=== PATIENT | female | born 1980 | race Two or more races ===

== ENCOUNTER 2022-12-26 06:07 | Inpatient (IN) | payer MEDICAID ==
[2022-12-24 08:36] LABS: Urine WBC None Seen /hpf (0 - 5)
[2022-12-24 08:40] LABS: Basophils # (auto) 0 10 ^3/uL (0-0.2); Basophils % (auto) 0.6 % (0.0-2.0); Eosinophils # (auto) 0.1 10 ^3/uL (0-0.8); Eosinophils % (auto) 1.8 % (0.0-7.0); Hematocrit 38.2 % (36.0-46.0); Lymphocytes # (auto) 1.9 10 ^3/uL (0.4-5.4); Lymphocytes % (auto) 28.2 % (10.0-50.0); Mean Corpuscular Hemoglobin 30.8 pg (28.0-32.0); Mean Corpuscular Volume 90.5 fL (80.0-100.0); Monocytes # (auto) 0.4 10 ^3/uL (0-1.3); Monocytes % (auto) 6.8 % (0.0-12.0); Neutrophils # (auto) 4.2 10 ^3/uL (1.6-8.6); Neutrophils % (auto) 62.6 % (37.0-80.0); Nucleated Red Blood Cells % 0.1 %; Red Blood Cells 4.22 10^6/uL (4.0-5.20); Red Cell Distribution Width 14.1 % (11.8-14.3); White Blood Cell 6.6 10^3/uL (4.4-10.8)
[2022-12-24 08:56] LABS: Urine Bacteria NONE SEEN /hpf (None Seen); Urine Blood Negative /uL (Negative); Urine Specific Gravity 1.007 (1.001-1.035)
[2022-12-24 08:57] LABS: INR 0.94 (0.9-1.15); Partial Thromboplastin Time 25.8 sec (24.6-33.4)
[2022-12-24 09:14] LABS: Albumin 3.6 g/dL (3.4-5.0); Calcium 8.6 mg/dL (8.5-10.1)
[2022-12-24 09:18] LABS: Bilirubin, Total 0.3 mg/dL (0.2-1.0); Total Protein 7.3 g/dL (6.4-8.2)
[~2022-12-26] VITALS: Ht 167.6 cm; Wt 75.9 kg
[~2022-12-26 06:07] MED LIST: ALBUAER3 IN; IBUP400T22 PO; TRIA1SPR6
[2022-12-26] MEDS ORDERED: ceFAZolin 1GM/50ML 100 ML IV ONE (07:16)
[2022-12-26] MEDS ORDERED: HYDROmorphone HCL 2 MG/ML VL/or syr IV PRN ×2 (07:30)
[2022-12-26] MEDS ORDERED: MORPHINE SULFATE INJ 2 MG/ml SYRG IV PRN (07:30)
[2022-12-26] MEDS ORDERED: LIDOCAINE 1% HCL (LOCAL ANESTH.) INJ 20ML MDV ONE (07:30)
[2022-12-26] MEDS ORDERED: METOCLOPRAMIDE HCL 5MG/ml INJ 2ml VIAL IV PRN (07:30)
[2022-12-26] MEDS ORDERED: BUPIVACAINE HCL 50 ML ONE (07:30)
[2022-12-26] MEDS ORDERED: fentaNYL CITRATE 100 MCG/2 ML VL ONE (07:34)
[2022-12-26] MEDS ORDERED: PROPOFOL 10 MG/ML 20 ML IV ONE ×2 (07:34→08:09)
[2022-12-26] MEDS ORDERED: ONDANSETRON HCL 4 MG/2 ML VIAL ONE (07:34)
[2022-12-26] MEDS ORDERED: MIDAZOLAM HCL 2MG/2ML 2ml VIAL (1mg/ml) ONE (07:34)
[2022-12-26] MEDS ORDERED: SODIUM CHLORIDE LOCK 10 ML ONE (07:34)
[2022-12-26] MEDS ORDERED: AUG875T PO (09:10)
[2022-12-26] MEDS ORDERED: HYDR-4902 PO (09:10)
[2022-12-26] MEDS ORDERED: NITROGLYCERIN 0.4 MG SL TAB SL PRN (10:00)
[2022-12-26] MEDS ORDERED: HYDROmorphone HCL 2 MG/ML VL/or syr IV ONE (10:10)
[2022-12-26 12:00] VITALS: BP 113/72
[2022-12-26] MEDS: MORPHINE SULFATE INJ 2 MG/ml SYRG IV PRN ×2 (14:41→19:58)
[2022-12-26 16:00] VITALS: BP 100/64
[2022-12-26] MEDS: HYDROcodone-ACET 10/325MG TAB PO PRN ×2 (16:19→23:11)
[2022-12-26 22:00] VITALS: BP 111/71
[2022-12-27] MEDS: MORPHINE SULFATE INJ 2 MG/ml SYRG IV PRN (04:44)
[2022-12-27 05:00] VITALS: BP 108/67
[2022-12-27 08:15] VITALS: BP 103/65
[2022-12-27 08:39] VITALS: BP 103/65
[2022-12-27] MEDS: HYDROcodone-ACET 10/325MG TAB PO PRN ×2 (08:45→15:42)
[2022-12-27 13:00] VITALS: BP 109/63
[2022-12-27] MEDS ORDERED: ONDANSETRON HCL 4 MG/2 ML VIAL IV PRN (13:45)
[2022-12-27] MEDS ORDERED: ONDA-144 PO (14:08)
[2022-12-27] MEDS ORDERED: HYDR-4902 PO (14:08)
[2022-12-27 15:44] VITALS: BP 109/63
== END 2022-12-27 16:20 | disposition home or self-care (01) | DRG 314 ==
LOC: SUR 06:07 → OVERFLOW 10:05 → EAST 11:15
PROVIDERS: ADMIT Student in an Organized Health Care Education/Training Program; ATTEND Student in an Organized Health Care Education/Training Program
PROC: 0QBN0ZZ Excision of Right Metatarsal, Open Approach (ICD-10-PCS; principal; 2022-12-26 07:32)
DX: M20.11 Hallux valgus (acquired), right foot (principal); J45.909 Unspecified asthma, uncomplicated; M21.611 Bunion of right foot
CPT/HCPCS: 36415; 73620; 73630; 76000; 80053; 81001; 84702; 85025; 85610; 85730; G0378; J0690; J2001; J2250; J2405; J2704; J3490